=== PATIENT | female | born 1995 | race African-American/Black ===

== ENCOUNTER 2019-10-27 09:47 | Emergency (ER) | payer MEDICAID, OTHER ==
[~2019-10-27] VITALS: Ht 160 cm; Wt 67.0 kg
[2019-10-27] MEDS ORDERED: MORPHINE SULFATE 4 MG/ML CPJ (NOT FOR IM USE) IV ONE (10:30)
[2019-10-27 11:03] LABS: EOSINOPHILS % 0.5 % (0.0-5.0); HEMATOCRIT. 38.4 % (36.0-48.0); HEMOGLOBIN. 12.9 g/dL (12.0-16.0); LYMPHOCYTES % 37.1 % (20.0-50.0); MEAN CORPUSCULAR HEMOGLOBIN 29.5 pg (28.0-32.0); MEAN CORPUSCULAR VOLUME 87.6 fL (81.0-99.0); MEAN PLATELET VOLUME 7.4 fl (7.4-10.4); MONOCYTES % 5.7 % (2.0-8.0); NEUTROPHILS % 55.7 % (40.0-76.0); PLATELET 230 x1000/uL (130-400); RED BLOOD CELL COUNT 4.38 mill/uL (4.2-5.4); RED CELL DISTRIBUTION WIDTH 13.3 % (11.6-14.6)
[2019-10-27 11:04] LABS: CHLORIDE 107 mEq/L (98-107)
[2019-10-27 11:11] LABS: ETHANOL BLOOD < 10 mg/dL
[2019-10-27 11:33] LABS: HCG SCREEN POSITIVE
[2019-10-27 12:05] LABS: *AMPHETAMINES SCREEN URINE NEGATIVE (NEGATIVE); *BARBITURATES SCREEN URINE NEGATIVE (NEGATIVE); *BENZODIAZEPINES SCREEN URINE NEGATIVE (NEGATIVE); *COCAINE SCREEN URINE NEGATIVE (NEGATIVE); METHADONE URINE SCREEN NEGATIVE (NEGATIVE)
[2019-10-27 12:06] LABS: OPIATES URINE SCREEN NEGATIVE (NEGATIVE); PHENCYCLIDINE URINE SCREEN NEGATIVE (NEGATIVE)
[2019-10-27 12:17] LABS: CANNABINOID URINE SCREEN PRESUMTIVE POSITIVE (NEGATIVE)
[2019-10-27 15:00] VITALS: BP 116/68
== END 2019-10-27 16:09 | disposition home or self-care (01) ==
LOC: ER 09:47
DX: J45.909 Unspecified asthma, uncomplicated (principal); F12.10 Cannabis abuse, uncomplicated
CPT/HCPCS: 36415; 71045; 80053; 80305; 80320; 81025; 83690; 83880; 84484; 84703; 85025; 93005; 96374; 99285; J2270; G0480